=== PATIENT | female | born 1990 | race Caucasian/White ===

== ENCOUNTER 2022-10-08 17:01 | Outpatient (CLI) | payer BC, SELFPAY | END 2022-10-08 17:02 | disposition home or self-care (01) | PROVIDERS: PCP Family Medicine; Visit Provider Family Medicine | DX: Z00.00 Encounter for general adult medical examination without abnormal findings (principal); E66.9 Obesity, unspecified; I10 Essential (primary) hypertension; L65.9 Nonscarring hair loss, unspecified | CPT/HCPCS: 80053; 84443 ==

== ENCOUNTER 2022-11-16 08:59 | Outpatient (CLI) | payer BC, SELFPAY | END 2022-11-16 09:00 | disposition home or self-care (01) | LOC: NFLDREF 11-18 01:39 | PROVIDERS: PCP Family Medicine; Referring Provider Family Medicine; Visit Provider Family Medicine | DX: I10 Essential (primary) hypertension (principal) | CPT/HCPCS: 80061 ==

== ENCOUNTER 2023-01-01 10:01 | Outpatient (CLI) | payer BC, SELFPAY | END 2023-01-01 10:02 | disposition home or self-care (01) | LOC: FRMREF 10:02 | PROVIDERS: PCP Family Medicine; Visit Provider Family Medicine | DX: E66.9 Obesity, unspecified (principal); I10 Essential (primary) hypertension; L65.9 Nonscarring hair loss, unspecified | CPT/HCPCS: 80076 ==

== ENCOUNTER 2023-02-14 09:30 | Outpatient (CLI) | payer BC, SELFPAY | END 2023-02-14 09:31 | disposition home or self-care (01) | LOC: NFLDREF 02-18 06:28 | PROVIDERS: PCP Family Medicine; Referring Provider Family Medicine; Visit Provider Family Medicine | DX: B35.1 Tinea unguium (principal) | CPT/HCPCS: 80076 ==

== ENCOUNTER 2023-04-02 09:19 | Outpatient (CLI) | payer BC, SELFPAY | END 2023-04-02 09:20 | disposition home or self-care (01) | LOC: NFLDREF 04-03 08:05 | PROVIDERS: PCP Family Medicine; Referring Provider Family Medicine; Visit Provider Family Medicine | DX: B35.1 Tinea unguium (principal) | CPT/HCPCS: 80053 ==

== ENCOUNTER 2023-05-21 13:04 | Outpatient (CLI) | payer BC, SELFPAY ==
--- NOTE | 2023-05-21 13:20 | CRLHL7_ITS ---
For Patients: As a result of the Century Cures Act, medical imaging exams and procedure reports are released immediately into your electronic medical record. You may view this report before your referring provider. If you have questions, please contact your health care provider. BILATERAL DIGITAL SCREENING MAMMOGRAM WITH TOMOSYNTHESIS AND COMPUTER-AIDED DETECTION CLINICAL HISTORY: Routine screening exam. COMPARISON: None. TECHNIQUE: Digital mammogram in CC and MLO projections including computer-aided detection (CAD). Tomosynthesis utilized. BREAST COMPOSITION: The breasts are heterogeneously dense, which may obscure small masses. FINDINGS: RIGHT Breast: Nodular density is present within the lower outer quadrant 3 cm from the nipple. LEFT Breast: No suspicious findings. IMPRESSION: RIGHT breast asymmetry/mass. RECOMMENDATIONS: Additional mammographic views of the RIGHT breast including 3D spot compression CC/MLO. RIGHT breast ultrasound may also be required. BI-RADS Category 0: Incomplete: Need Additional Imaging Evaluation and/or Prior Mammograms for Comparison [facility] will contact the patient for follow-up. A lay language report of this examination will be provided to the patient. Dictated by Rodrick Pisano MD @ 05/23/2023 12:36:52 PM jennifer/Dictated by: Rodrick Pisano MD @ 05/23/2023 12:36:00 PM (Electronically Signed)
== END 2023-05-21 13:05 | disposition home or self-care (01) ==
PROVIDERS: PCP Family Medicine; Visit Provider Family Medicine
DX: Z12.31 Encounter for screening mammogram for malignant neoplasm of breast (principal); N63.10 Unspecified lump in the right breast, unspecified quadrant; R92.2 Inconclusive mammogram; Z80.3 Family history of malignant neoplasm of breast
CPT/HCPCS: 77063; 77067

== ENCOUNTER 2023-06-06 11:34 | Outpatient (CLI) | payer BC, SELFPAY | END 2023-06-06 11:35 | disposition home or self-care (01) | LOC: NFLDREF 06-18 20:22 | PROVIDERS: PCP Family Medicine; Referring Provider Family Medicine; Visit Provider Family Medicine | DX: B35.1 Tinea unguium (principal) | CPT/HCPCS: 80053 ==

== ENCOUNTER 2023-06-10 07:31 | Outpatient (CLI) | payer BC, SELFPAY ==
--- NOTE | 2023-06-10 07:45 | MM_ITS ---
Patient: LULI JOSEPH Facility:?[facility] Patient ID:?[id number] Site Patient ID:?[id number]. Site :?1990 Study:?XRay-Breast Right 3D W/CAD-06/10/2023 8:39:54 AM Ordering Physician:?Luli Ojeda Final Report: DIGITAL DIAGNOSTIC RIGHT MAMMOGRAM USING TOMOSYNTHESIS AND COMPUTER-AIDED DETECTION RIGHT BREAST ULTRASOUND CLINICAL HISTORY: Right breast mass/asymmetry. COMPARISON: 05/21/2023. TECHNIQUE: Digital right mammogram in two projections. Tomosynthesis and CAD utilized. Real-time ultrasound imaging of right breast with imaging documentation. BREAST COMPOSITION: The breast is heterogeneously dense, which may obscure small masses. FINDINGS: 3D spot compression CC/MLO right breast mammogram images submitted. Persistent nodular density within the lower outer quadrant 3 cm from the nipple. No architectural distortion. Targeted right breast ultrasound performed at 7 o`clock 3 cm from the nipple. In this location, there is an angular heterogeneously hypoechoic nodular structure located just beneath the skin measuring 8 x 10 x 12 millimeters. IMPRESSION: Indeterminate heterogeneously hypoechoic structure located just beneath the skin at 7 o`clock 3 cm from the nipple right breast measuring 12 millimeters. RECOMMENDATIONS: Ultrasound-guided core needle biopsy. Results and recommendations discussed with the patient. BI-RADS Category 4: Suspicious A lay language report of this examination will be provided to the patient. Dictated by Rodrick Pisano MD @ 06/10/2023 9:05:49 AM jj/Dictated by: Rodrick Pisano MD @ 06/10/2023 9:05:00 AM Signed by:?Rodrick Pisano MD @06/10/2023 1:01:30 PM (Electronic Signature)
--- NOTE | 2023-06-10 08:15 | US_ITS ---
Patient: OXANA Neely OPAL Facility:?[facility] Patient ID:?[id number] Site Patient ID:?[id number] Site :?1990 Study:?US-Breast Right RT BREAST LMT / DR. ARAMBULA TO READ-06/10/2023 9:41:16 AM Ordering Physician:?OXANA PARADA Final Report: PLEASE SEE DIGITAL DIAGNOSTIC RIGHT MAMMOGRAM PERFORMED SAME DAY CRL:jennifer rodriguez/Dictated by: Rodrick Arambula MD @ 06/10/2023 9:42:00 AM Signed by:?Rodrick Arambula MD @06/10/2023 1:01:34 PM (Electronic Signature)
== END 2023-06-10 07:32 | disposition home or self-care (01) ==
LOC: MAMMO 07:31
PROVIDERS: PCP Family Medicine; Visit Provider Family Medicine
DX: N63.10 Unspecified lump in the right breast, unspecified quadrant (principal); R92.8 Other abnormal and inconclusive findings on diagnostic imaging of breast; R92.2 Inconclusive mammogram
CPT/HCPCS: 76642; 77065; G0279

== ENCOUNTER 2023-06-18 10:59 | Outpatient (CLI) | payer BC, SELFPAY ==
--- NOTE | 2023-06-18 11:15 | US_ITS ---
Patient: OXANA JOSEPH Facility:?[facility] Patient ID:?[id number] Site Patient ID:?[id number] Site :?1990 Study:?US-Breast Procedure Dr. Arambula to read-06/18/2023 11:57:06 AM Ordering Physician:DEJAH Final Report: ULTRASOUND-GUIDED BREAST BIOPSY AND POST-BIOPSY DIGITAL MAMMOGRAM FOR BIOPSY MARKER PLACEMENT CLINICAL HISTORY: Indeterminate lesion. COMPARISON STUDIES: 06/10/2023, 05/21/2023. TECHNIQUE: Real-time ultrasound with image documentation was used for targeting the breast lesion. Core biopsy specimens were obtained using an automated gun with a 18- gauge biopsy needle. Post-biopsy CC and ML digital mammograms were obtained to document position of the biopsy marker. CONSENT and TIME OUT: The procedure, risks, and alternatives were explained to the patient and a consent was signed. [place] Protocol was followed including pre-procedure verification that relevant information/documentation was available, reviewed and properly matched to the patient; consent accurate and complete; and equipment and supplies available. Time Out was conducted just prior to starting procedure to verify the four required elements: patient identity, correct side/site marked (if applicable), procedure, relevant images/results properly labeled and displayed (if applicable). PROCEDURE: The patient was positioned supine on the ultrasound table. The breast was prepped with ChloraPrep. 8 cc of 1% lidocaine was used for local anesthesia. Core samples were obtained. A sterile metal biopsy clip was placed percutaneously to florin the lesion position within the breast. The specimens were placed in 10% formalin and sent to the pathology department. Pressure was held on the biopsy site until all bleeding subsided. The skin incision was closed with Steri-Strips. An ice pack was positioned over the biopsy site. Post-biopsy instructions were reviewed with the patient, and a written copy was given to her. LATERALITY: RIGHT breast. LESION: Irregular hypoechoic lesion with punctate calcification measuring 0.8 x 1.0 x 1.2 cm at 7 o`clock 3 cm from the nipple. SUSPICION FOR MALIGNANCY: Intermediate. NUMBER OF SAMPLES: 6. BIOPSY CLIP SHAPE: Oval. PROXIMITY OF CLIP TO TARGET: Within the lesion. IMPRESSION: Ultrasound-guided breast biopsy. When the pathology report is available, an addendum to this report will be made. ACR not applicable Dictated by She Arambula MD @ 06/18/2023 12:13:52 PM/yissel AJ/Dictated by: She Arambula MD @ 06/18/2023 12:13:00 PM Signed by: She Arambula @ 06/18/2023 2:01:00 PM (Electronic Signature) ----ADDENDUM---- ADDENDUM: Findings consistent with complex fibroadenoma without atypia or malignancy. This is concordant. Annual bilateral screening mammography is recommended. Due to strong family history of breast cancer, could consider surgical referral for consideration of excision versus high-risk screening with breast MRI. SHE ARAMBULA M.D. Diagnostic Radiologist [email or web address] DSM/rccarmella D& Transcribed: 4:10 p.m. Signed by:Adri Arambula MD @06/20/2023 4:30:35 PM (Electronic Signature)
--- NOTE | 2023-06-18 12:00 | MM_ITS ---
Patient: OXANA JOSEPH Facility:?[facility] Patient ID:?[id number] Site Patient ID:?[id number] Site :?1990 Study:?XRay-Breast Right 2D w/ CAD POST CLIP PLACEMENT-06/18/2023 12:01:21 PM Ordering Physician:?Oxana Ojeda Final Report: PLEASE SEE RIGHT BREAST ULTRASOUND-GUIDED BIOPSY OF SAME DAY. CRL:yissel AJ/Dictated by: Rodrick Pisano MD @ 06/18/2023 12:13:00 PM Signed by:?Rodrick Pisano MD @06/18/2023 2:01:00 PM (Electronic Signature)
== END 2023-06-18 11:00 | disposition home or self-care (01) ==
LOC: US 11:00
PROVIDERS: PCP Family Medicine; Visit Provider Family Medicine
DX: N63.10 Unspecified lump in the right breast, unspecified quadrant (principal); D24.1 Benign neoplasm of right breast; R92.1 Mammographic calcification found on diagnostic imaging of breast; R92.8 Other abnormal and inconclusive findings on diagnostic imaging of breast
CPT/HCPCS: 19083; 77065; A4648; A4649

== ENCOUNTER 2023-07-23 07:51 | Day surgery (SDC) | payer BC, SELFPAY ==
[2023-07-23] MEDS: LACTATED RINGERS 1000 ML 1,000 ML 100 ML IV (08:00)
[2023-07-23 08:20] VITALS: BMI 34.2
[2023-07-23 08:21] LABS: Ur HCG Qualitative* Negative (Negative)
[2023-07-23 08:23] VITALS: BP 148/93; PULSE 86; RESP 16; TEMP 36.4; O2SAT 99
[2023-07-23] MEDS: SODIUM CHLORIDE 0.9 % (FLUSH) 10 ML SYRINGE IVF (08:34)
--- NOTE | 2023-07-23 09:15 | US_ITS ---
Patient: OXANA JOSEPH Facility:?[facility] Patient ID:?[id number] Site Patient ID:?[id number]. Site :?1990 Study:?US-Breast Right DR ARAMBULA TO READ-07/23/2023 10:11:53 AM Ordering Physician:?LAZARO PORTILLO Final Report: BREAST WIRE LOCALIZATION USING ULTRASOUND GUIDANCE CLINICAL HISTORY: Lumpectomy. LATERALITY: RIGHT breast. LESION: Hypoechoic nodule 7 o`clock 3 cm from the nipple measuring 1.2 x 0.8 x 1.0 cm. LOCALIZATION WIRE: [place] hookwire. TECHNIQUE: The localization wire was placed using real-time ultrasound guidance with image documentation. Cranial-caudal and medial-lateral digital mammograms were obtained after localization wire placement. CONSENT and TIME OUT: The procedure, risks, and alternatives were explained to the patient and a consent was signed. [place] Protocol was followed including pre-procedure verification that relevant information/documentation was available, reviewed and properly matched to the patient; consent accurate and complete; and equipment and supplies available. Time Out was conducted just prior to starting procedure to verify the four required elements: patient identity, correct side/site marked (if applicable), procedure, relevant images/results properly labeled and displayed (if applicable). PROCEDURE: The skin was prepped with ChloraPrep. 6 cc 1 percent lidocaine used for local anesthesia. The localization wire was placed within or near the targeted breast lesion using ultrasound guidance. The patient tolerated the procedure well. PROXIMITY OF WIRE TO LESION: Within the lesion. IMPRESSION: Successful breast wire localization. ACR not applicable Dictated by Rodrick Arambula MD @ 07/23/2023 12:02:39 PM jj/Dictated by: Rodrick Arambula MD @ 07/23/2023 12:02:00 PM Signed by:?Rodrick Arambula MD @07/23/2023 1:44:02 PM (Electronic Signature)
--- NOTE | 2023-07-23 10:00 | MM_ITS ---
Patient: LULI JOSEPH Facility:?[facility] Patient ID:?[id number] Site Patient ID:?[id number]. Site :?1990 Study:?XRay-Breast Right 2D w/ CAD POST CLIP PLACEMENT-07/23/2023 11:56:43 AM Ordering Physician:?Luli Ojeda Final Report: PLEASE SEE ULTRASOUND-GUIDED RIGHT BREAST WIRE LOCALIZATION PERFORMED SAME DAY CRL:jennifer rodriguez/Dictated by: Rodrick Pisano MD @ 07/23/2023 12:03:00 PM Signed by:?Rodrick Pisano MD @07/23/2023 1:44:05 PM (Electronic Signature)
--- NOTE | 2023-07-23 10:18 | W.PM.H&PU ---
History & Physical Update History & Physical Update H&P Reviewed and patient assessed: No changes noted
[2023-07-23] MEDS: CEFAZOLIN 2 GM INJ IVP (10:30)
[2023-07-23] MEDS: BUPIVACAINE 0.25% 30 ML INJECTION (10:37)
--- NOTE | 2023-07-23 10:51 | MM_ITS ---
Patient: LULI JOSEPH Facility:?[facility] Patient ID:?[id number] Site Patient ID:?[id number]. Site :?1990 Study:?XRay-Breast Right SPECIMEN-07/23/2023 11:09:08 AM Ordering Physician:Luli Espinal Final Report: RIGHT BREAST SPECIMEN RADIOGRAPH CLINICAL HISTORY: Lumpectomy. COMPARISON: 05/21/2023. FINDINGS: Specimen films, two views, submitted. Specimen contains the biopsied nodule, biopsy clip and localization wire. IMPRESSION: Specimen contains the biopsied lesion, biopsy clip and localization wire. ACR not applicable Dictated by Rodrick Pisano MD @ 07/23/2023 12:03:38 PM jj/Dictated by: Rodrick Pisano MD @ 07/23/2023 12:03:00 PM Signed by:?Rodrick Pisano MD @07/23/2023 1:44:03 PM (Electronic Signature)
--- NOTE | 2023-07-23 11:18 | PM.GSPRC ---
Operative Note Date of procedure: 07/23/23 Pre-op diagnosis: 1. Complex fibroadenoma of the right breast. Post-op diagnosis: Same Type of Procedure: 1. Excisional biopsy of the right breast mass. Indications: 33-year-old female was seen in clinic for evaluation of an incidentally found right breast mass on her screening mammogram. Patient was undergoing a screening mammogram early because of her mother's history of breast cancer at the age of 54. Patient then had an ultrasound that showed 10 x 12 mm hypoechoic heterogeneous mass at 7:00 3 cm from the nipple. This was biopsied and biopsy came back as complex fibroadenoma. On clinical exam patient had no palpable masses in the right breast and no abnormalities palpated in the left breast. Given patient's pathology findings and her family history of breast cancer in the first-degree relative, excisional biopsy of this complex fibroadenoma was recommended. The procedure was discussed in detail. The risks associated procedure including infection, bleeding, and possible need for additional procedures were all discussed with the patient, and she agreed to proceed. Procedure Description: After discussing the risks and benefits of the procedure, the patient signed informed consent.? The operative site was marked and the patient was brought to the operating room and placed on the operating table in supine position.? Care was taken to pad the patient's pressure points.?? The patient was then sedated by anesthesia.?? The operative site was then prepped and draped in the usual sterile fashion.? A time-out was then performed. Local anesthetic was injected in the right breast near the areola and the wire. A curvilinear skin incision was then made with a scalpel spanning from 6-8 o'clock. Dermis was divided with scalpel. The skin flap was then developed inferiorly until the wire was identified and pulled in to the surgical site. The breast tissue around the wire was then dissected in a cylinder like fashion with cautery until the wire and the breast tissue attached to the wire were excised. Hemostasis was achieved with cautery. The breast specimen was then marked with ink for orientation. The breast mass was palpable in the specimen. I then minimally incised the breast specimen from 2 different directions to identify if the mass was in the specimen and the fibroadenoma was identified. This was then sent to mammography to confirm presence of the clip and the wire in the specimen. The mammographic films were reviewed and clip and the wire were present in the breast biopsy specimen. The breast specimen was then sent to pathology for permanent section. The surgical cavity was examined and no bleeding was seen. Additional local anesthetic was injected at the surgical site. The breast tissue was then reapproximated with interrupted 2-0 Vicryl sutures. The dermis of the surgical incision was closed with interrupted 3-0 Vicryl sutures. The skin was closed with a running 4-0 Monocryl stitch. Steri-Strips and sterile dressings were placed over the incision. The patient was then woken and transported to the recovery area in stable condition. ? The patient tolerated the procedure well. Findings: The breast mass was excised with the wire. Anesthesia: MAC and local Surgeon: Tawnya Bustamante MD Estimated blood loss (mL): 2 Additional Specimen Information: 1. Right breast biopsy. Disposition: same day
[2023-07-23 11:25] VITALS: BP 131/87; PULSE 82; RESP 16; TEMP 36.4; O2SAT 99
--- NOTE | 2023-07-23 11:26 | W.ANESCHARGE ---
Anesthesia Charges Start Date/Time Anesthesia Start Date: 07/23/23 Anesthesia Start Time: 10:13 Stop Date/Time Anesthesia Stop Date: 07/23/23 Anesthesia Stop Time: 11:23
[2023-07-23 11:30] VITALS: BP 134/77; PULSE 82; RESP 16; O2SAT 99
[2023-07-23 11:45] VITALS: BP 141/88; PULSE 80; RESP 16; O2SAT 99
== END 2023-07-23 12:20 | disposition home or self-care (01) ==
PROVIDERS: PCP Family Medicine; Visit Provider Surgery
PROC: (CPT 19120; principal; 2023-07-23 10:00)
DX: D24.1 Benign neoplasm of right breast (principal)
CPT/HCPCS: 19120; 00400; 19285; 77065; 81025; 88307; C1769; J0665; J0690; J1100; J2250; J2405; J2704; J3010; J3490; J7120

== ENCOUNTER 2023-10-03 08:18 | Outpatient (CLI) | payer BC, SELFPAY | END 2023-10-03 08:19 | disposition home or self-care (01) | LOC: FRMREF 08:19 | PROVIDERS: PCP Family Medicine; Visit Provider Registered Nurse | DX: N92.0 Excessive and frequent menstruation with regular cycle (principal) | CPT/HCPCS: 84443 ==

== ENCOUNTER 2023-10-30 10:56 | Outpatient (CLI) | payer BC, SELFPAY ==
--- NOTE | 2023-10-30 11:00 | CRLHL7_ITS ---
For Patients: As a result of the Century Cures Act, medical imaging exams and procedure reports are released immediately into your electronic medical record. You may view this report before your referring provider. If you have questions, please contact your health care provider. CLINICAL HISTORY: Menorrhagia, pain TECHNIQUE: 2D ohara scale ultrasound. In addition color Doppler and spectral Doppler analysis was performed of the pelvis using a transvaginal approach. FINDINGS: On transvaginal imaging, the myometrium has a normal uniform echotexture. The uterus measures 9.1 x 4.8 x 5.7 cm. The endometrial lining measures 11 mm in thickness. The right ovary measures 2.7 x 1.6 x 2.6 cm in size and the left ovary measures 4.7 x 2.0 x 4.0 cm. Left ovarian cyst containing internal reticular echoes measures 3.3 x 1.7 x 2.8 cm. The ovaries demonstrate normal arterial and venous blood flow on color Doppler and spectral Doppler analysis. There are no suspicious fluid collections within the cul-de-sac. IMPRESSION: Hemorrhagic left ovarian cyst measures 3.3 x 1.7 x 2.8 cm. Endometrial thickness 11 millimeters. Dictated by Rodrick Pisano MD @ 10/31/2023 11:39:09 AM (Electronically Signed)
== END 2023-10-30 10:57 | disposition home or self-care (01) ==
LOC: US 10:57
PROVIDERS: PCP Family Medicine; Visit Provider Registered Nurse
DX: N92.0 Excessive and frequent menstruation with regular cycle (principal); N83.202 Unspecified ovarian cyst, left side; R93.89 Abnormal findings on diagnostic imaging of other specified body structures
CPT/HCPCS: 76830; 76856; 93976

== ENCOUNTER 2023-11-08 12:23 | Outpatient (CLI) | payer BC, SELFPAY | END 2023-11-08 12:24 | disposition home or self-care (01) | PROVIDERS: PCP Family Medicine; Visit Provider Family Medicine | DX: Z00.00 Encounter for general adult medical examination without abnormal findings (principal); I10 Essential (primary) hypertension; E66.9 Obesity, unspecified; L65.9 Nonscarring hair loss, unspecified; Z13.1 Encounter for screening for diabetes mellitus | CPT/HCPCS: 80053; 82043; 82570 ==

== ENCOUNTER 2023-12-03 19:34 | Outpatient (CLI) | payer BC, SELFPAY ==
--- NOTE | 2023-12-17 10:34 | W.PM.SLEEP ---
Sleep Study Details Details Interpreting Provider: Anna Date of Sleep Study: 12/03/23 Sleep Study Details: STUDY TYPE:? Home unattended ? BMI:? 34.4 ORDERING PROVIDER:Noreen Castillo INDICATION:? Concern about sleep apnea ? SLEEP SUMMARY:? 562 minutes monitored RESPIRATORY SUMMARY:? AHI 6.1 Left lateral 20.7, supine 7.3, right lateral 3.0 Low oxygen 90 Snoring 61.5% PERIODIC LIMB MOVEMENTS OF SLEEP:? Not recorded CARDIAC:? Range 55-106, mean 70.7 IMPRESSION:? Mild obstructive sleep apnea with supine position dependency RECOMMENDATION: Treatment options include observation, trial of lateral sleep in the right lateral position. Other options would be CPAP or dental appliance or airway expansion surgery.
== END 2023-12-03 19:35 | disposition home or self-care (01) ==
LOC: SLEEP 19:37
PROVIDERS: PCP Family Medicine; Visit Provider Otolaryngology
DX: G47.33 Obstructive sleep apnea (adult) (pediatric) (principal)
CPT/HCPCS: 95806

== ENCOUNTER 2023-12-24 06:03 | Day surgery (SDC) | payer BC, SELFPAY ==
[2023-12-24] VITALS (27 sets, daily range): BP systolic 126–154; BP diastolic 75–100; PULSE 81–107; RESP 10–20; TEMP 36–37.1; O2SAT 95–100; BMI 33.7
[2023-12-24] MEDS: LACTATED RINGERS 1000 ML 1,000 ML 100 ML IV ×2 (06:25→09:50)
[2023-12-24] MEDS: SODIUM CHLORIDE 0.9 % (FLUSH) 10 ML SYRINGE IVF (06:25)
[2023-12-24 06:45] LABS: Hemoglobin* 13.9 gm/dL (12.0-16.0)
[2023-12-24 06:47] LABS: Ur HCG Qualitative* Negative (Negative)
--- NOTE | 2023-12-24 07:08 | W.PM.H&PU ---
History & Physical Update History & Physical Update H&P Reviewed and patient assessed: No changes noted
--- NOTE | 2023-12-24 07:28 | PM.PROC ---
Procedure Note Time Seen by Provider: 10:00 Date Seen: 12/24/23 Date of procedure: 12/24/23 Will [facility] bill your pro fee for this procedure?: Yes Procedure: Preoperative diagnosis: 33-year-old 2 para 2 with menorrhagia and severe dysmenorrhea who desires definitive treatment. Postoperative diagnosis: Same, stage I endometriosis Procedure: Total laparoscopic hysterectomy, bilateral salpingectomy, diagnostic cystoscopy. Anesthesia: General endotracheal, local, TAPS block Surgeon: Kristy Ibanez MD Assist: Enriqueta Smith MD Estimated blood loss: 100 mL. IV Fluid: 1000 mL Urine output: 500mL, clear urine at the end of the procedure Drains: Lim to gravity Specimen: Uterus and bilateral fallopian tubes to pathology. Findings: On exam under anesthesia: The uterus was anteverted, approximately 8-10 week size, mobile without nodularity or masses palpable. Adnexa without mass or fullness palpable. On laparoscopy: stage I endometriosis with a window in the peritoneum in the posterior cul-de-sac on the right. Appendix, liver and gallbladder all appeared normal. Uterine weight in the OR: 154mg. Procedure: Luli was taken to the operating room where general anesthetic was found to be adequate. She was placed in the dorsal lithotomy position and an exam under anesthesia was performed with findings stated above. She was then prepped and draped in a normal sterile manner. A Lim catheter was placed. A bivalve speculum was placed in the vaginal canal. A long Allis clamp was placed on the anterior lip of the cervix, in the uterus sounded to 10cm. A large size VCare uterine manipulator was then placed. The Allis clamp and speculum were removed from the cervix. Attention was then turned to performing the laparoscopic portion of the procedure. All incisions were infiltrated with 0.50% Marcaine prior to incising the skin. A vertical, infraumbilical 1 cm incision was made. An 11 mm trocar was then placed under direct visualization. The abdomen was then insufflated with CO2 gas to a pressure of 15 mm of mercury. Two,, pelvic ports were then placed approximately 3-4 finger breaths medial to the ischial crests. The trocar in the RLQ = 5mm, LLQ = 11mm. These were placed under direct visualization. A total of 10 mL of local anesthetic was injected. Attention was then turned to performing the hysterectomy. Both ureters were visualized in the normal position bilaterally. The left fallopian tube was grasped and removed with sequential pedicles using the dissecting, PowerSeal dissecting forceps. The left side of the hysterectomy was performed using the PowerSeal dissecting forceps. The 1st pedicles were starting with the broad ligament that was cauterized and and bisected. In sequence show pedicles were formed to divide the utero-ovarian ligament. Then sequential pedicles were made through the broad ligament. The posterior leaf of the broad ligament was then divided and sequential pedicles carried down to the level of the VCare cup. The anterior leaf of the broad ligament was then divided down to the level of the anterior aspect of the VCare cup and a bladder flap created. The uterine vessels were then skeletonized. The uterine vessels were then cauterized and divided. Then excess tissue was cleared over the top of the VCare cup using the dissecting forceps. The right salpingectomy and right side of the hysterectomy were then performed in a similar manner. The Ligasure Valleylab pen with the spatula attachment was then used to perform the colpotomy incising around the VCare cup. The uterus was removed and the fundus placed in the vaginal canal to maintain insufflation. The vaginal cuff was then reapproximated using 2-0 V lock suture in a running manner. All the pedicles and vaginal cuff were then closely visualized and hemostasis obtained with bipolar cautery using the PowerSeal dissecting forceps or the [employer] [place] pen with the spatula. The the uterus was removed from the vaginal canal and sent to pathology. The Lim catheter was briefly removed. A diagnostic cystoscopy was performed using normal saline as the insufflation medium. The dome of the bladder was noted to be without injury and no evidence of any sutures from the vaginal cuff causing injury. Normal urine flow was noted through both ureteral orifices. Fluorescein IV was used to visualize the urine more easily. The Lim catheter was then replaced. Attention was then returned to the abdomen where hemostasis was verified. Jamil was applied to the vaginal cuff. The CO2 pressure decreased to 8mmHG and hemostasis verified. The fascia in the LLQ incision was approximated with 0-Vicryl suture using the Irving Solomon fascial closure device. This was closed under direct visualization with the laparoscope. The fascia in the umbilical incision was reapproximated using 0 Vicryl on a UR 6 needle. All trocars were removed under direct visualization. CO2 gas was allowed to escape the infraumbilical port prior to its removal. All skin incisions were re-approximated using 4-0 Monocryl in a running subcuticular manner, Exofin skin adhesive gel and adhesive bandages placed. The patient tolerated this procedure well. Sponge, lap and instrument counts were correct x2 at the end of the procedure and the patient was taken to the recovery area in stable condition. The patient received 2 gm IV ancef prior to the start of the procedure. Anesthesia: GETA and local
[2023-12-24] MEDS: CEFAZOLIN 2 GM INJ IVP (07:36)
--- NOTE | 2023-12-24 07:38 | W.ANESCHARGE ---
Anesthesia Charges Start Date/Time Anesthesia Start Date: 12/24/23 Anesthesia Start Time: 07:23 Stop Date/Time Anesthesia Stop Date: 12/24/23
[2023-12-24] MEDS: BUPIVACAINE 0.5% 30 ML INJECTION (08:25)
--- NOTE | 2023-12-24 08:55 | W.ANESCHARGE ---
Anesthesia Charges Start Date/Time Anesthesia Start Date: 12/24/23 Anesthesia Start Time: 07:23 Stop Date/Time Anesthesia Stop Date: 12/24/23 Anesthesia Stop Time: 10:06
--- NOTE | 2023-12-24 08:55 | W.PM.NB ---
Nerve Block Nerve Block Time Seen by Provider: 07:30 Date Seen: 12/24/23 Type of block requested by surgeon for post-operative analgesia: TAP Side: bilateral Time out performed: Yes Verification of patient name: Yes Verification of date of : Yes Site marking: site marked Name of person performing procedure: Giovanni Continuous monitoring Was continuous monitoring of O2 sat, B/P, instrument calibrator, recorded every 15 minutes?: Yes Procedure Checklist: sterile prep, needles and gloves Ultrasound guided. Images saved: Yes Medications given in 5ml increments after negative aspiration: Marcaine %: 0.25 mL: 30 Needle gauge: 20 and Exparel mL: 10 Patient tolerated procedure well: Yes Additional comments: Needle noted between internal oblique and transversus abdominus. Local spread visualized Block Charges Block Charge (with Pro Fee): TAP Bilateral Use of Ultrasound Machine for Block: Yes- US Guidance/pain block
[2023-12-24] MEDS: KETOROLAC 30 MG/ML inj IVP ×3 (09:45→21:56)
--- NOTE | 2023-12-24 10:06 | W.ANESCHARGE ---
Anesthesia Charges Start Date/Time Anesthesia Start Date: 12/24/23 Anesthesia Start Time: 07:23 Stop Date/Time Anesthesia Stop Date: 12/24/23 Anesthesia Stop Time: 10:06
[2023-12-24] MEDS: fentaNYL 100 MCG/2 ML inj 50 MCG IVP ×2 (10:28→10:45)
[2023-12-24] MEDS: ONDANSETRON 2 MG/ML inj 4 MG IVP (11:06)
[2023-12-24] MEDS: OXYCODONE 5 MG TABLET PO ×2 (14:20→19:09)
--- NOTE | 2023-12-24 15:50 | PC.NURSE ---
End of shift [id number] - Pt arrived from PACU at approximately 1110. Alert, oriented, cooperative. Family at bedside, pt reported abdominal pain as 3/10. Ice pack on site, dressing CDI. Medication given per MAR with pt reporting comfort. Tolerating RA, regular diet/fluids. Pt able to ambulate in room independently, denies nausea/vomiting. Catheter removed with tip intact. Pt appears to be resting comfortably at end of shift with call light within reach.
[2023-12-24] MEDS: ACETAMINOPHEN 325 MG TABLET 650 MG PO (17:57)
[2023-12-25] MEDS: IBUPROFEN 600 MG TABLET PO ×2 (01:54→07:49)
[2023-12-25 03:12] VITALS: BP 139/85; PULSE 81; RESP 16; TEMP 36.6; O2SAT 97
[2023-12-25] MEDS: ACETAMINOPHEN 325 MG TABLET 650 MG PO (05:25)
--- NOTE | 2023-12-25 06:33 | PC.NURSE ---
End of shift [id number]: A&O pleasant and cooperative. Pt reporting pain near lap sites but denies need for PRN pain medication. Pain managed with scheduled meds. Lap sides c/d/i. Denies n/v. Voiding adequate amounts. Up at sapphire in room.
[2023-12-25 06:46] LABS: Hemoglobin* 12.3 gm/dL (12.0-16.0)
[2023-12-25 07:41] VITALS: BP 140/86; PULSE 79; RESP 16; TEMP 36.8; O2SAT 97
--- NOTE | 2023-12-25 07:52 | P.DS_ITS ---
DS: Providers Provider Time Seen by Provider: 07:45 Date Seen: 12/25/23 Date of admission: 12/24/23 Primary care physician: Luli Ojeda MD Attending Physician on discharge: Kristy Ibanez MD DIRECTOR OF INFECTION CONTROL-Discharge Summary Hospital Course Hospital Course Narrative: Patient is a 33 year old admitted on 12/24/23 for postop cares. She is status post total laparoscopic hysterectomy, bilateral salpingectomy and diagnostic cystoscopy with Dr. Ibanez. Indication for surgery: Dysmenorrhea. Intraoperative findings were notable for mild endometriosis, duplicate ureter bilaterally. Please see Dr. Ibanez's operative note for complete details. She had an uncomplicated surgery. Postoperative course has been uneventful. Vitals have been stable. She has remained afebrile. Today, on postoperative day 1, she reports the pain is well controlled. She has been able to ambulate Without difficulty. She is tolerating regular diet without nausea/vomiting. She is not yet passing flatus. Lim catheter has been removed, and she is voiding without difficulty. Vaginal bleeding has been of small volume. Denies calf pain/swelling/erythema, chest pain or dyspnea. Time Spent with Patient Time attestation: Total time spent providing and/or coordinating discharge services: Time spent: Less than 30 minutes DIRECTOR OF INFECTION CONTROL - Exam Physical Exam: Vital signs: Temp Pulse Resp BP Pulse Ox O2 Del Method 98.2 F 79 16 140/86 H 97 Room Air 12/25/23 07:41 12/25/23 07:41 12/25/23 07:41 12/25/23 07:41 12/25/23 07:41 12/25/23 07:41 Narrative: General: Alert and oriented in no acute distress Psych: Appropriate mood and affect Abdomen: Soft, nondistended. Tenderness to palpation across the low abdomen, consistent with postoperative state. No rebound or guarding. Laparoscopic incisions are well approximated, superficial surgical glue x3. Ecchymosis noted of the left lower quadrant port. No erythema or drainage from any incisions. Extremities: No calf swelling, erythema or tenderness DIRECTOR OF INFECTION CONTROL - DS: Data Data Completed and Pending Labs on day of discharge: Labs from last 24 hours 12/25/23 06:18 Hgb 12.3 Procedures Procedures: Procedures Operation Date: 12/24/23 07:15 Actual Procedure Side Surgeon p Total Laparoscopic Hysterectomy, Bilateral Salpingectomy, Diagnostic Cystoscopy Bilateral Kristy Ibanez MD Discharge Plan Discharge Disposition: Home w/ Parent or Adult Discharging Surgeon: Nora Smith Follow-Up Appointment: with Dr. Ibanez in 2 weeks. Prescriptions: New ibuprofen 600 mg tablet 600 mg PO QID PRNQty: 30 0RF docusate sodium 100 mg capsule 100 mg PO BID PRNQty: 100 0RF oxycodone 5 mg tablet 5 mg PO TID PRN (Reason: pain) Qty: 20 0RF Continued valacyclovir [Valtrex] 1 gram tablet 2,000 mg PO BID PRN (Reason: cold sore) Qty: 24 0RF ketoconazole 2 % shampoo 1 applic topical 2XW 84 Days Qty: 120 4RF epinephrine [EpiPen 2-Rustam] 0.3 mg/0.3 mL auto-injector 0.3 mg IM ONCE Qty: 2 0RF Rx Instructions: as a single dose; may repeat once Wegovy 0.5 mg/0.5 mL pen injector 0.5 mg subcut QWEEK 84 Days Qty: 6 3RF Activity Level: Other Discharge Diet: Regular Patient Instructions: Laparoscopic Hysterectomy (DC), Laparoscopic Hysterectomy (GEN) Additional Instructions: ACTIVITY RESTRICTIONS: Nothing vaginally for 6 weeks: no tampons/intercourse No driving while taking narcotic pain medication during the day. 1-2 weeks. Lifting restriction: Maximum of 20 pounds for 2-3 weeks. High impact or core exercises: 3 weeks. Submerge the incisions in water (bath/pool/wagner): 2 weeks. Off of work/school for a minimum of 4 weeks NO RESTRICTIONS for: Walking Going up/down stairs Showering Being a passenger in a motor vehicle. SYMPTOMS TO REPORT TO YOUR DOCTOR: Bleeding that is red, like a moderate period Passing clots larger than the size of a golf ball Pain not relieved by prescribed medication Fever above 100.4 degrees Fahrenheit A foul vaginal odor Decrease in urination or painful, frequent urinating Chest pain Shortness of breath Tenderness or pain with redness and/swelling in the calf(s) of your leg Follow-up Appointments with Dr. Ibanez: 1. [facility]3 [facility] for an incision check. 2. A 6 week postop visit to verify that the vaginal cuff is well-healed. Follow-up: Kristy Ibanez MD [Staff Physician] - Luli Ojeda MD [Primary Care Provider] - Discharge Orders: Discharge Order (Routine); Ordered 12/25/23 Ordered By: Nora Smith
[2023-12-25] MEDS: SIMETHICONE 80 MG TAB.CHEW 160 MG PO (07:55)
[2023-12-25] MEDS: OXYCODONE 5 MG TABLET PO (10:19)
[2023-12-25 10:20] VITALS: BP 136/85; RESP 16; TEMP 36.5; O2SAT 99
--- NOTE | 2023-12-25 11:31 | PC.NURSE ---
Pt alert and oriented. Pt had complaints of pain ranging 1-3; see EMAR for intervention. Pt up independently. Pt has three lap sites that are glued. Pt's IV removed; catheter intact. VS WNL. Pt discharged home with .
== END 2023-12-25 11:05 | disposition home or self-care (01) ==
LOC: OR 06:04 → MEDSURG 06:07
PROVIDERS: PCP Family Medicine; Visit Provider Obstetrics & Gynecology
PROC: 0UT94ZZ Resection of Uterus, Percutaneous Endoscopic Approach (ICD-10-PCS; CPT 58571; principal; 2023-12-24 07:15)
DX: N92.0 Excessive and frequent menstruation with regular cycle (principal); N94.6 Dysmenorrhea, unspecified; N80.329 Endometriosis of the posterior cul-de-sac, unspecified depth; G89.18 Other acute postprocedural pain; I10 Essential (primary) hypertension; R74.01 Elevation of levels of liver transaminase levels; E66.9 Obesity, unspecified; Z68.33 Body mass index [BMI] 33.0-33.9, adult; Q62.5 Duplication of ureter
CPT/HCPCS: 58571; 00840; 36415; 64488; 76942; 81025; 85018; 86850; 86900; 86901; 88307; A9270; C9290; J0330; J0665; J0690; J1100; J1170; J1885; J2250; J2371; J2405; J2704; J2710; J3010; J7120

== ENCOUNTER 2024-04-01 07:10 | Outpatient (CLI) | payer BC, SELFPAY ==
--- NOTE | 2024-04-01 07:15 | CRLHL7_ITS ---
For Patients: As a result of the Century Cures Act, medical imaging exams and procedure reports are released immediately into your electronic medical record. You may view this report before your referring provider. If you have questions, please contact your health care provider. Indication: Six weeks neck pain. Concerning x-ray. Fracture versus congenital malformation. Technique: Multiplanar, multisequence MRI of the cervical spine obtained without contrast. Comparison: Cervical spine x-ray 03/23/2024 Findings: Mild nonspecific reversal of the normal cervical lordosis. Trace anterolisthesis at C3-4 and C4-5. Minor chronic anterior wedge configuration of C5 and C6. No acute osseous abnormality. Mild bony edema at the right C6-7 uncovertebral joint, suggesting inflammatory/stress reaction. No suspicious bone marrow lesion. Visualized spinal cord appears normal in course, caliber, and signal. No suspicious findings identified in the paraspinal soft tissues. C2-C3: Left facet arthropathy. No neural foraminal or spinal canal stenosis. Facet arthropathy. No neural foraminal or spinal canal stenosis. C3-C4: Mild uncovertebral and facet arthropathy. C4-C5: Mild uncovertebral and facet arthropathy. No neural foraminal or spinal canal stenosis. C5-C6: Shallow posterior disc bulge, left asymmetric uncovertebral arthropathy. No right, mild-moderate left neural foraminal narrowing. No spinal canal stenosis. C6-C7: Shallow posterior disc-osteophyte complex, uncovertebral arthropathy. No left, mild right neural foraminal narrowing. Mild right eccentric spinal canal narrowing. C7-T1: No neural foraminal or spinal canal stenosis. Impression: 1. Mild chronic anterior wedge configuration of C5 and C6. No acute osseous abnormality. 2. Cervical spondylosis, mild reversal of the normal lordosis and trace degenerative spondylolisthesis as detailed. 3. At C5-C6, mild-moderate left neural foraminal narrowing. 4. At C6-C7, mild right neural foraminal narrowing and mild right-sided spinal canal narrowing. Dictated by Chikis Franco MD @ 04/02/2024 7:29:11 PM (Electronically Signed)
== END 2024-04-01 07:11 | disposition home or self-care (01) ==
LOC: MRI 07:10
PROVIDERS: PCP Family Medicine; Visit Provider Family Medicine
DX: M54.2 Cervicalgia (principal); M43.9 Deforming dorsopathy, unspecified; M47.892 Other spondylosis, cervical region; M50.222 Other cervical disc displacement at C5-C6 level; M50.223 Other cervical disc displacement at C6-C7 level
CPT/HCPCS: 72141

== ENCOUNTER 2024-05-20 10:00 | Outpatient (RCR) | payer OTHER, SELFPAY | END 2024-05-20 11:59 | disposition home or self-care (01) | PROVIDERS: PCP Family Medicine; Visit Provider Family Medicine | DX: M54.2 Cervicalgia (principal); R51.9 Headache, unspecified; R20.2 Paresthesia of skin; Z51.89 Encounter for other specified aftercare | CPT/HCPCS: 97110; 97140; 97161 ==

== ENCOUNTER 2024-07-16 13:02 | Outpatient (CLI) | payer OTHER, SELFPAY ==
--- NOTE | 2024-07-16 13:20 | CRLHL7_ITS ---
For Patients: As a result of the Century Cures Act, medical imaging exams and procedure reports are released immediately into your electronic medical record. You may view this report before your referring provider. If you have questions, please contact your health care provider. BILATERAL SCREENING MAMMOGRAM WITH COMPUTER-AIDED DETECTION AND TOMOSYNTHESIS TECHNIQUE: CC and MLO views were obtained. These mammographic images have been obtained using full-field digital technique. These mammographic images were interpreted with the benefit of computer-aided detection. Breast Tomosynthesis was used in this interpretation. COMPARISON FILM: 05/21/23, 06/10/23(RT). FINDINGS: The breasts are heterogeneously dense, which may obscure small masses. IMPRESSION: There is no radiographic evidence for malignancy. ASSESSMENT: BI-RADS Category 1: Negative RECOMMENDATION: Routine screening mammogram in 1 year. A lay language report of this examination will be provided to the patient. Rodrick Pisano M.D. Diagnostic Radiologist [email or web address] SP/Dictated by: Rodrick Pisano MD @ 07/17/2024 12:46:00 PM (Electronically Signed)
== END 2024-07-16 13:03 | disposition home or self-care (01) ==
LOC: MAMMO 13:03
PROVIDERS: PCP Family Medicine; Visit Provider Family Medicine
DX: Z12.31 Encounter for screening mammogram for malignant neoplasm of breast (principal); R92.333 Mammographic heterogeneous density, bilateral breasts
CPT/HCPCS: 77063; 77067

== ENCOUNTER 2025-03-29 12:49 | Outpatient (CLI) | payer OTHER, SELFPAY | END 2025-03-29 12:50 | disposition home or self-care (01) | PROVIDERS: PCP Family Medicine; Visit Provider Family Medicine | DX: Z00.00 Encounter for general adult medical examination without abnormal findings (principal); R74.01 Elevation of levels of liver transaminase levels; G47.33 Obstructive sleep apnea (adult) (pediatric); Z11.59 Encounter for screening for other viral diseases | CPT/HCPCS: 80053; 80061; 86803 ==